=== PATIENT | male | born 1945 | race Caucasian/White ===

== ENCOUNTER 2018-12-11 07:19 | Day surgery (SDC) | payer MEDICARE ==
[2018-12-08 15:04] LABS: BASOPHILS % (AUTO) 0.8 % (0.0-5.0); EOSINOPHILS % (AUTO) 1.5 % (0.0-8.0); HEMATOCRIT 43.6 % (42-54); LYMPHOCYTES % (AUTO) 20.3 % (21.0-51.0); MEAN CORPUSCULAR HEMOGLOBIN 29.6 pg (27.0-33.0); MEAN CORPUSCULAR HGB CONC 32.9 g/dL (32.0-36.0); MEAN CORPUSCULAR VOLUME 89.9 fL (79-99); MONOCYTES % (AUTO) 8.3 % (3.0-13.0); NEUTROPHILS % (AUTO) 69.1 % (40.0-77.0); PLATELET COUNT (AUTO) 321 K/uL (130-400); RED BLOOD CELL COUNT(AUTO) 4.84 MIL/uL (4.50-6.20); RED CELL DISTRIBUTION WIDTH 15.8 % (11.0-15.5); WHITE BLOOD COUNT (AUTO) 6.1 K/uL (4.8-10.8)
[2018-12-08 15:06] VITALS: BP 143/85
[2018-12-08 15:16] LABS: INR 1.02 (0.85-1.15); PROTHROMBIN TIME 10.7 SEC (9.6-11.6)
[2018-12-08 15:22] LABS: POTASSIUM 4.7 mmol/L (3.5-5.1)
[2018-12-08 15:38] LABS: APPEARANCE,URINE CLOUDY (CLEAR); BILIRUBIN,URINE NEGATIVE (NEGATIVE); COLOR,URINE YELLOW (YELLOW); GLUCOSE, URINE (UA) NEGATIVE (NEGATIVE); KETONES,URINE NEGATIVE (NEGATIVE); LEUKOCYTE ESTERASE ,URINE LARGE (NEGATIVE); NITRATE,URINE NEGATIVE (NEGATIVE); OCCULT BLOOD,URINE TRACE-INTACT (NEGATIVE); PROTEIN,URINE NEGATIVE (NEGATIVE); UROBILINOGEN,URINE 0.2 mg/dL (0.2-1.0)
[2018-12-08 15:47] LABS: WBC,URINE 26-50 /HPF (0-1)
[2018-12-08 15:48] LABS: BACTERIA,URINE Few /HPF (None Seen)
[2018-12-08 15:51] LABS: SQUAMOUS EPITHELIAL CELL,UR Rare /HPF (0-2)
--- NOTE | 2018-12-10 15:58 | NUR ---
ABNORMAL LABS REPORTED AND FAXED ALL ABNORMAL LABS TO [facility] FROM [facility] OFF[facility]. PER [facility] WERE CALLED IN FOR PATIENT. NO NEW ORDERS GIVEN.
[~2018-12-11] VITALS: Ht 171.4 cm; Wt 76.7 kg
[2018-12-11] VITALS (18 sets, daily range): BP systolic 109–136; BP diastolic 63–80
[2018-12-11] MEDS: GENTAMICIN SULFATE IV SCH ×2 (06:00→09:00)
[2018-12-11] MEDS: SODIUM CHLORIDE 0.9% IV SCH ×2 (06:00→09:00)
[2018-12-11] MEDS: CEFTRIAXONE SODIUM 1 GM IVP SCH ×2 (06:00→08:30)
[~2018-12-11 07:19] MED LIST: ASCO10007 PO; IBUP-2077 PO; MULT-1296 PO; VITA1CAP85 PO
[2018-12-11] MEDS ORDERED: LACTATED RINGERS 1000ML 1,000 ML IV ONE (08:03)
[2018-12-11] MEDS ORDERED: MIDAZOLAM HCL 1 MG/ML 2ML VIAL ONE (08:42)
[2018-12-11] MEDS ORDERED: LIDOCAINE PF 2% 5ML ABBOJECT ONE ×2 (08:42→08:45)
[2018-12-11] MEDS ORDERED: DEXAMETHASONE SOD PHOSPHATE 10MG/ML 1ML VIAL ONE (08:42)
[2018-12-11] MEDS ORDERED: PROPOFOL 10 MG/ML 20ML VIAL IV ONE (08:43)
[2018-12-11] MEDS ORDERED: FENTANYL CITRATE PF 50 MCG/1 ML 2ML VIAL ONE ×2 (08:43→09:34)
[2018-12-11] MEDS ORDERED: ROCURONIUM 10MG/1ML SYR 10 MG/ML ML ONE (08:43)
[2018-12-11] MEDS ORDERED: NEOSTIGMINE 5MG/5ML SYR IV ONE (08:43)
[2018-12-11] MEDS ORDERED: GLYCOPYRROLATE 1 MG/5 ML SYRINGE ONE (08:43)
[2018-12-11] MEDS ORDERED: EPHEDRINE SULFATE 50 MG/ML AMPULE ONE (08:56)
[2018-12-11] MEDS ORDERED: MEPERIDINE-PF 25 MG/ML SYG ONE ×2 (10:13→10:22)
--- NOTE | 2018-12-11 11:05 | NUR ---
RECEIVED PT AWAKE ,WITH IRRIGATION ,F/C WITH PINKISH OUTPUT..CLAMPED F/C WITH 1200 ML OUTPUT,NO COMPLAINTS,,CALLBELL IN REACH
--- NOTE | 2018-12-11 11:20 | NUR ---
INSTRUCTED PT AND SPOUSE ON CHANGING OF PAPPAS BAG TO LEG BAG,,,VERBALIZE UNDERSTANDING,,,,SUPPLIES GIVEN TO PT///// ,,,WITH TRACTION IN PLACE,,PT AND SPOUSE AWARE NOT TO REMOVE TRACTION,VERBALIZE UNDERSTANDING Addendum: 12/11/18 at 1327 by ЕКАТЕРИНА CORDOVA LVN LVN INSTRUCTED PT AND FAMILY IF NO URINE OR BLOOD CLOTS TO PAPPAS ,OR NO URINE OUTPUT, TO COME TO ER OR ,,,VERBALIZE UNDERSTANDING
== END 2018-12-11 12:05 | disposition home or self-care (01) ==
LOC: DAH 07:19
PROVIDERS: ATTEND Urology
DX: N40.1 Benign prostatic hyperplasia with lower urinary tract symptoms (principal); R33.8 Other retention of urine; Z98.890 Other specified postprocedural states
CPT/HCPCS: 36415; 52648; 71045; 80048; 81001; 85025; 85610; 87077; 87088; 87186; 93005; A4218; A4354; A4358; A4600; J0696; J1100; J1580; J2001 ×2; J2175 ×2; J2704; J2710; J3010 ×2; J3490 ×2; J7120 ×2; J2250